=== PATIENT | male | born 1990 | race Two or more races ===

== ENCOUNTER 2024-05-10 08:52 | Emergency (ER) | payer BC ==
[~2024-05-10] VITALS: Ht 190.5 cm; Wt 113.4 kg
== END 2024-05-10 11:01 | disposition home or self-care (01) ==
LOC: ER 08:54
DX: S01.511A Laceration without foreign body of lip, initial encounter (principal); X58.XXXA Exposure to other specified factors, initial encounter; Y93.9 Activity, unspecified; Y92.89 Other specified places as the place of occurrence of the external cause; Y99.9 Unspecified external cause status